=== PATIENT | male | born 1965 | race Caucasian/White ===

== ENCOUNTER 2018-03-06 21:38 | Emergency (ER) | payer BC ==
--- NOTE | 2018-03-06 21:57 | EDM.PDOC ---
ED HPI GENERAL MEDICAL PROBLEM - General Chief Complaint: Laceration Stated Complaint: FELL AND HIT HEAD Time Seen by Provider: 03/06/18 21:47 Source of Information: Reports: Patient History Limitations: Reports: No Limitations - History of Present Illness INITIAL COMMENTS - FREE TEXT/NARRATIVE: pt was wake boarding and he slipped and the board came up and hit the area above the rt eye. He was not kniocked out. He has a mild headache at this time. He had no period of confusion . He had no visual changes. Onset: Today, Sudden, Other (pt fell and hit a patio door. ) Duration: Hour(s): Location: Reports: Face Associated Symptoms: Reports: No Other Symptoms, Other (pt is not having a severe headache. ) - Related Data Allergies Allergy/AdvReac Type Severity Reaction Status Date / Time No Known Allergies Allergy Verified 03/06/18 21:44 Home Meds: Home Meds Ustekinumab [Stelara] 03/06/18 [History] Varenicline [Chantix] 03/06/18 [History] Past Medical History Musculoskeletal History: Reports: Back Pain, Chronic - Past Surgical History Musculoskeletal Surgical History: Reports: Carpal Tunnel ED ROS GENERAL - Review of Systems Review Of Systems: See Below Constitutional: Reports: No Symptoms HEENT: Reports: Other (laceration on scalp and forehead area. ) Respiratory: Reports: No Symptoms Cardiovascular: Reports: No Symptoms Endocrine: Reports: No Symptoms GI/Abdominal: Reports: No Symptoms : Reports: No Symptoms Musculoskeletal: Reports: No Symptoms Skin: Reports: No Symptoms Neurological: Reports: Other (pt has been drinking but he has no confusion) Psychiatric: Reports: No Symptoms ED EXAM, SKIN/RASH Exam: See Below Text/Narrative:: pt has a 3 inch laceration which extends back on the scalp on the left side. He fell at home and hit the patio door. he was not knocked out and he did not injure himself otherwise. he had been doing some drinking and he believes this contributed to the fall. Exam Limited By: No Limitations General Appearance: Alert, Anxious, Mild Distress, Other (pupils are reactive. pt is alert and is able to answer all questions. ) Ears: Normal TMs, Other ( no blood behind the drums. ) Nose: Normal Inspection Throat/Mouth: Normal Inspection Head: Other ( 3 inch laceration of the forehead extending back onto the scalp. ) Neck: Normal Inspection Respiratory/Chest: No Respiratory Distress Cardiovascular: Regular Rate, Rhythm GI/Abdominal: Soft, Non-Tender (Male) Exam: Deferred Rectal (Males) Exam: Deferred Back Exam: Normal Inspection Extremities: Normal Inspection Neurological: Alert, Oriented, Normal Cognition Psychiatric: Normal Affect Course - Vital Signs Last Recorded V/S: Last Vital Signs Temp 36.7 C 03/06/18 21:41 Pulse 77 03/06/18 21:41 Resp 16 03/06/18 21:41 BP 117/66 03/06/18 21:41 Pulse Ox 95 03/06/18 21:41 - Re-Assessments/Exams Free Text/Narrative Re-Assessment/Exam: 03/06/18 23:15 pt has a 3 inch laceration extending back onto the scalp. He was not knocked out. His laceration goes deep to the periostium. The area was cleansed well and irrigated with saline. It was infiltrated with lidocaine. The scalp was closed tightly with 4-0 etholon. the laceration on the forehead was closed in a layered fashion The subq was closed with 5-0 chromic. The skin was closed with 6 -0 prolene. bACATRACIN WAS APPLIED AND A PRESSURE DRESSING WAS APPLIED. 03/06/18 23:16 Departure - Departure Time of Disposition: 23:19 Disposition: Home, Self-Care 01 Condition: Fair Clinical Impression: Laceration of face - Discharge Information Referrals: PCP,None [Primary Care Provider] - Care Plan Goals: LEAVE PRESSURE DRESSING ON TONUIGHT, MAY REMOVE IN AM, NO FURTHER OINTMENTS, MAY BE OPEN TO AIR, KEEP CLEAN, SR IN 7 DAYS, RTC IF REDNESS, KEFLEX 500MG TID, TYLENOL AND M,OTRIN FOR PAIN
[2018-03-06] MEDS: Lidocaine 1% 20 ML MDV INJECT ONE (22:34)
[2018-03-06] MEDS: Bacitracin Oint 1 GM U/D Packet TOP ONE (22:34)
== END 2018-03-06 23:27 | disposition home or self-care (01) ==
LOC: JP.ED 21:38
DX: S01.01XA Laceration without foreign body of scalp, initial encounter (principal); S01.81XA Laceration without foreign body of other part of head, initial encounter; W01.198A Fall on same level from slipping, tripping and stumbling with subsequent striking against other object, initial encounter
CPT/HCPCS: 12002; 12052; 99284-25